=== PATIENT | female | born 1965 | race Caucasian/White ===

== ENCOUNTER 2023-11-18 10:58 | Outpatient (AMB) | payer BC, SELFPAY ==
--- NOTE | 2023-11-18 10:59 | A.OFFVIS_ITS ---
Intake Vital Signs 11/18/23 11:10 Weight 182 lb BP 158/81 H Blood Pressure Location Rt brachial Position Sitting Pulse 89 Intake Visit Reasons: ? colonoscopy Intake Note: This patient presents for an assessment for colonoscopy screening Patient c/o; reports last colonoscopy was done at [facility] 8 years ago, reports no rectal bleeding or pain, report no changes in bowel habits. [employer] Required: No Accompanied by: Self / Same As Patient Allergies hair dye Allergy (Severe, Uncoded 11/18/23 11:04) Unknown Medication List - Last Reconciled 11/18/23 by Erik Santamaria MD No Known Home Meds HPI ? colonoscopy HPI Details [age] year old female self referred for screening colonoscopy. She says that her last colonoscopy was 8 years ago. This was done in [place]. She says that there were polyps removed and she was told that she should have another colonoscopy in 5 years. She therefore is due for her colonoscopy and [facility]. She denies GI complaints. She denies any family history of colon cancer. [facility] Surgical History Ganglion cyst of left foot History of tonsillectomy Family History Mother Thyroid cancer Family/Other Thyroid cancer Pseudomyxoma peritonei Social History Alcohol intake: current Alcohol intake frequency: holidays/special occasions only Patient Tobacco Use Status: Current everyday Tobacco user Review of Systems Const Denies chills and Denies fever(s) Card Denies chest pain, Denies dyspnea and Denies dyspnea on exertion Resp Denies cough, Denies dyspnea and Denies dyspnea on exertion GI Denies hematochezia and Denies change in bowel habits Denies hematuria Musc Denies back pain and Denies limited range of motion Neuro Denies focal weakness and Denies convulsions Psych Denies depression and Denies mood swings Physical Exam Const General: comfortable and no acute distress Orientation/consciousness: patient oriented x3 Neck Neck: Yes no lymphadenopathy Resp Auscultation: clear to auscultation bilaterally Cardio Rhythm: regular rhythm GI Palpation (GI): Soft to palpation, nontender and no guarding Neuro General: patient oriented x3 Assessment & Plan Assessment & Plan (1) Colon cancer screening: Code(s): Z12.11 - Encounter for screening for malignant neoplasm of colon Plan: She is due for a follow-up colonoscopy. I reviewed with her the technique of colonoscopy. I discussed the risks including but not limited to bleeding and perforation, as well as the benefits and alternatives. She understands and wants to proceed. She does not seem to present with above-average risk for colon cancer. Coding Level of Care Code New Pt Level 3 (39755) Diagnoses Colon cancer screening Z12.11
[2023-11-18 11:10] VITALS: BP 158/81; PULSE 89
== END 2023-11-18 11:36 | disposition home or self-care (01) ==
PROVIDERS: PCP Internal Medicine; Visit Provider Surgery
DX: Z12.11 Encounter for screening for malignant neoplasm of colon (principal)
CPT/HCPCS: 99203

== ENCOUNTER → 2023-11-18 10:58 | Outpatient (BNVA) | payer BC, SELFPAY | PROVIDERS: PCP Internal Medicine; Visit Provider Surgery ==

== ENCOUNTER 2024-01-03 06:33 | Day surgery (SDC) | payer BC, SELFPAY ==
--- NOTE | 2024-01-01 12:00 | HO.ANESPROP2 ---
HPI - Anesthesia Eval Consult details Narrative: 58yo F for Colonoscopy with Possible Polypectomy PMFSH Past Medical History Medical History No pertinent past medical history Family History Family History Mother Thyroid cancer Family/Other Thyroid cancer Pseudomyxoma peritonei Surgical History Surgical History Hx of foot surgery H/O colonoscopy History of tonsillectomy Social History Social History Alcohol intake: current Alcohol intake frequency: holidays/special occasions only Patient Tobacco Use Status: Current everyday Tobacco user Smoked in Last 30 Days: Yes Patient Interested in Nicotine Replacement: No Are you DNR?: No Advance Directives: No Advance Directives Information Provided: Yes Nutrition Risks: No Nutritional Risk Meds Allergies Allergy/AdvReac Type Severity Reaction Status Date / Time hair dye Allergy Severe Unknown Uncoded 01/03/24 06:38 Home Medications ?Medication ?Instructions ?Recorded ?Confirmed ?Last Taken ?Type No Known Home Meds 01/03/24 01/03/24 Unknown History Exam Height,Weight and Vital Signs: Weight 82.554 kg Assessment and Plan Assessment Anesthesia Assessment: Chart Reviewed
[2024-01-03] MEDS: Lactated Ringers 1,000 ML 100 ML IVCONT (06:38)
[2024-01-03 06:58] VITALS: BP 138/77; PULSE 77; RESP 18; TEMP 36.8; O2SAT 97
--- NOTE | 2024-01-03 07:19 | MHC.SHP ---
Pre-Procedural Eval Section A - 24 Hr Update-Section A only Date of Service: 01/03/24 Section B - Complete if H&P > 30 days Chief Complaint: screening Details of Present Illness: Has history of polyps, supposed to have a colonoscopy every 5 years Relevant Family History (Specify if Yes): No Relevant Social History: None Present Medications: see Short Stay Collaborative assessment Medical History: Significant History Allergies: Allergies Allergy/AdvReac Type Severity Reaction Status Date / Time hair dye Allergy Severe Unknown Uncoded 01/03/24 06:38 Review of Systems Sugical H&P ROS: Negative: Constitution, Cardiovascular, Respiratory, Neurological, Psychiatric, Hem-Onc, Allergic/Immunologic, Gastrointestinal, Genitourinary, Musculoskeletal, Integumentary, Endocrine and Eyes/Ears/Nose/Throat Exam Surgical H&P Exam: Normal: HEENT, Normal: Heart, Normal: Lungs, Normal: Extremities, Normal: Abdomen, Normal: Skin and Normal: Neurological Plan Diagnosis/Plan: Unchanged I have reviewed the history and physical and performed a pertinent physical examination on my patient. No changes have occurred unless specified. Time Spent With Patient Time: Total time managing care of this patient today ____ minutes.
--- NOTE | 2024-01-03 07:26 | HO.ANESPROP2 ---
[facility] Past Medical History Medical History No pertinent past medical history Family History Family History Mother Thyroid cancer Family/Other Thyroid cancer Pseudomyxoma peritonei Family history of problems with anesthesia: No Surgical History Surgical History Hx of foot surgery H/O colonoscopy History of tonsillectomy History of Problems with Anesthesia: No Social History Social History Alcohol intake: current Alcohol intake frequency: holidays/special occasions only Patient Tobacco Use Status: Current everyday Tobacco user Smoked in Last 30 Days: Yes Patient Interested in Nicotine Replacement: No Are you DNR?: No Advance Directives: No Advance Directives Information Provided: Yes Nutrition Risks: No Nutritional Risk Meds Allergies Allergy/AdvReac Type Severity Reaction Status Date / Time hair dye Allergy Severe Unknown Uncoded 01/03/24 06:38 Active Medications: Current Medications Lactated Ringer's (Lr) 1,000 mls @ 100 mls/hr IVCONT .Q10H MARGARITA Last Admin: 01/03/24 06:38 Dose: 100 mls/hr Home Medications ?Medication ?Instructions ?Recorded ?Confirmed ?Last Taken ?Type No Known Home Meds 01/03/24 01/03/24 Unknown History Exam Height,Weight and Vital Signs: Height 5 ft 4 in Weight 84.822 kg Last Vital Signs Temp 98.3 F 01/03/24 06:58 Pulse 77 01/03/24 06:58 Resp 18 01/03/24 06:58 BP 138/77 01/03/24 06:58 Pulse Ox 97 01/03/24 06:58 O2 Del Method Room Air 01/03/24 06:58 Airway Mallampati Class: II TM Dist: >3cm Neck ROM: Full Loose/Missing/Broken Teeth: No Heart: rrr Lungs: clear Assessment and Plan Final Anesthetic Review Family History of Problems with Anesthesia: No History of Problems with Anesthesia: No NPO: Yes ASA Class: I Final Preanesthetic Review: No Changes in Pt Med Stat, Meds/Allgs Chart Reviewed, Consent Obtained/Reviewed and Anes Risks/Benef Reviewed Patient Risk: Low Procedure Risk: Low Anesthetic Plan Anesthetic Plan: MAC: Disposition: Standard PACU
--- NOTE | 2024-01-03 08:04 | P.OP_ITS ---
Operative Note Operative Note Date of Service: 01/03/24 Narrative: Preop diagnosis: History of colon polyps Postop diagnosis: 1. Small polyp at level 12 cm, about 8 mm in size, otherwise normal colonoscopy findings Procedure: Colonoscopy with polypectomy using cold forceps Surgeon: Erik Santamaria MD The patient is a 58 year female who has a history of colon polyps and was supposed to undergo a colonoscopy every 5 years in [place]. She says she was unable to do this earlier because of COVID pandemic. She understood the technique of the planned procedure as well as the risks, benefits, and alternatives. The patient was brought to the operating room and placed in left lateral decubitus position under monitored anesthesia care. A surgical time-out was done. A full digital rectal exam was done and this did not reveal any significant anal lesions. The tip of the Olympus colonoscope was gently introduced through the anal orifice advanced with insufflation all the way to the cecum. The cecum was intubated. The cecum was identified by visualization of the ileocecal valve as well as the appendiceal orifice. The cecal mucosa was unremarkable. The scope was gradually withdrawn with careful examination of the entire colonic mucosa being done with scope withdrawal. The patient had adequate bowel prep so it was unlikely that any lesion may have been missed. At level 12 cm in the rectosigmoid, there was note of a small polyp about 2-3 mm in size. This was removed using multiple biopsy of cords forceps. The rest of the distal rectum and anal canal were unremarkable. The scope was then withdrawn completely with desufflation. The patient tolerated the procedure well. There were no immediate complications. In view of her history, her next colonoscopy may be in the next 5-10 years.
[2024-01-03 08:09] VITALS: BP 118/76; PULSE 94; RESP 18; TEMP 36.8; O2SAT 96
[2024-01-03 08:24] VITALS: BP 113/74; PULSE 72; RESP 20; TEMP 36.6; O2SAT 98
== END 2024-01-03 08:40 | disposition home or self-care (01) ==
PROVIDERS: Visit Provider Surgery
PROC: 0DBE8ZZ Excision of Large Intestine, Via Natural or Artificial Opening Endoscopic (ICD-10-PCS; CPT 45380; principal; 2024-01-03 07:30)
DX: Z12.11 Encounter for screening for malignant neoplasm of colon (principal); Z86.010 Personal history of colon polyps; K63.5 Polyp of colon; Z98.890 Other specified postprocedural states
CPT/HCPCS: 45380; 88305; J2704

== ENCOUNTER → 2024-01-03 06:33 | Outpatient (BNV) | payer BC, SELFPAY | PROVIDERS: Visit Provider Surgery | DX: Z12.11 Encounter for screening for malignant neoplasm of colon (principal); K63.5 Polyp of colon; Z86.010 Personal history of colon polyps | CPT/HCPCS: 45380 ==

== ENCOUNTER → 2024-01-23 09:39 | Outpatient (BNVA) | payer BC, SELFPAY | PROVIDERS: Visit Provider Surgery ==